=== PATIENT | female | born 1985 | race African-American/Black ===

== ENCOUNTER 2016-11-28 10:14 | Emergency (ER) | payer MEDICAID, OTHER ==
[~2016-11-28] VITALS: Ht 172.7 cm; Wt 60.0 kg
[2016-11-28 10:15] VITALS: BP 136/86; PULSE 120; RESP 24; TEMP 98.8; O2SAT 99
[2016-11-28] MEDS ORDERED: ONDANSETRON HCL 4 MG/2 ML VIAL IVP ONE (10:30)
[2016-11-28] MEDS ORDERED: SODIUM CHLORIDE 0.9% FLUSH 10 ML FLUSH IV FLUSH PRN (10:30)
[2016-11-28] MEDS ORDERED: MORPHINE SULFATE 8 MG/ML INJ IV PUSH ONE (10:30)
[2016-11-28 10:37] VITALS: RESP 18; O2SAT 99
[2016-11-28] MEDS ORDERED: KETOROLAC TROMETHAMINE 30 MG/ML (IVP) VIAL IVP ONE (10:45)
--- NOTE | 2016-11-28 10:54 | RADRPT ---
EXAM DATE/TIME: 11/28/2016 10:39 [facility] COMPARISON: CHEST SINGLE AP, February 28, 2013, 19:52. INDICATIONS : Evaluate lung status. Chest pain. MEDICAL HISTORY : None. SURGICAL HISTORY : None. ENCOUNTER: Initial ACUITY: 1 day PAIN SCORE: 10/10 LOCATION: Bilateral chest FINDINGS: A single view of the chest demonstrates the lungs to be symmetrically aerated without evidence of mas s, infiltrate or effusion. The cardiomediastinal contours are unremarkable. Osseous structures are intact. CONCLUSION: Normal examination for a patient of this age. No significant change has occurred. Jan Pacheco MD on November 28, 2016 at 10:52 Board Certified Radiologist. This report was verified electronically.
[2016-11-28 11:02] LABS: AUTOMATED NEUTROPHIL # 5.3 TH/MM3 (1.8-7.7); BASOPHIL # 0.1 TH/MM3 (0-0.2); BASOPHIL % 0.7 % (0.0-2.0); EOSINOPHIL # 0.1 TH/MM3 (0-0.4); EOSINOPHIL % 0.9 % (0.0-4.0); HEMATOCRIT 40.5 % (35.0-46.0); HEMO FLAGS DIFF FINAL; LYMPH % 28.5 % (9.0-44.0); LYMPHOCYTE # 2.5 TH/MM3 (1.0-4.8); MEAN CORPUSCULAR HEMOGLOBIN 31.3 PG (27.0-34.0); MEAN CORPUSCULAR HGB CONC 33.2 % (32.0-36.0); MONO % 9.9 % (0.0-8.0); PLATELET COUNT 195 TH/MM3 (150-450); RED BLOOD COUNT 4.31 MIL/MM3 (4.00-5.30); RED CELL DISTRIBUTION WIDTH 13.2 % (11.6-17.2); WHITE BLOOD COUNT 8.9 TH/MM3 (4.0-11.0)
--- NOTE | 2016-11-28 11:07 | PD ---
HPI Chief Complaint: Cold / Flu Symptoms Time Seen by Provider: 10:26 Travel History International Travel<30 days: No Contact w/Intl Traveler<30days: No Traveled to known affect area: No History of Present Illness HPI 31-year-old female arrives complaining of right lower chest wall pain. It started over the last few hours well patient was asleep. She notes runny nose and nasal congestion starting overnight as well. She notes that slapping upon the chest does not seem to help. She took aspirin which has not helped. She's had no fever. Patient denies cough. She smokes tobacco. She denies alcohol abuse. PFSH Past Medical History Arthritis: No Asthma: No Anxiety: No Depression: No Heart Rhythm Problems: Yes (MURMUR) Cancer: No Cardiovascular Problems: Yes (HEART MURMUR) High Cholesterol: No Congestive Heart Failure: No COPD: No Cerebrovascular Accident: No Diabetes: No Diminished Hearing: No Endocrine: No GERD: No Genitourinary: Yes (OVARIAN CYST uti) Hiatal Hernia: No Immune Disorder: No Kidney Stones: Yes Musculoskeletal: No Neurologic: No Psychiatric: No Reproductive: Yes (OVARIAN CYST) Respiratory: Yes (SMOKER) Immunizations Current: No Migraines: Yes Renal Failure: No Sleep Apnea: No Thyroid Disease: No Ulcer: No ?: Not : 6 Para: 4 Miscarriage: 1 : 1 Ectopic : Yes (REMOVED LEFT TUBE) Ovarian Cysts: Yes Tubal Ligation: Yes (ECTOPIC W/ SURGERY) Past Surgical History Abdominal Surgery: No AICD: No Arteriovenous Shunt: No Cardiac Surgery: No Section: No Ear Surgery: No Endocrine Surgery: No Eye Surgery: No Genitourinary Surgery: No Gynecologic Surgery: Yes (ectopic preg) Insulin Pump: No Joint Replacement: No Oral Surgery: No Pacemaker: No Thoracic Surgery: No Other Surgery: No Family History Family Hypercholesterolemia: Yes Social History Alcohol Use: No Tobacco Use: Yes (1 ppd) Substance Use: No Allergies-Medications (Allergen,Severity, Reaction): Coded Allergies: Phenergan (Verified Adverse Reaction, Severe, N&V, 11/28/16) Reported Meds & Prescriptions Reported Meds & Active Scripts Active No Active Prescriptions or Reported Medications Review of Systems Except as stated in HPI: all other systems reviewed are Neg Physical Exam Narrative GENERAL: 31-year-old female well-nourished well-developed mildly anxious SKIN: Focused skin assessment warm/dry. HEAD: Atraumatic. Normocephalic. EYES: Pupils equal and round. No scleral icterus. No injection or drainage. ENT: No nasal bleeding or discharge. Mucous membranes pink and moist. NECK: Trachea midline. No JVD. CARDIOVASCULAR: Regular rate and rhythm. No murmur appreciated. No tenderness about the right lower chest wall. RESPIRATORY: No accessory muscle use. Clear to auscultation. Breath sounds equal bilaterally. GASTROINTESTINAL: Abdomen soft, non-tender, nondistended. Minimal tenderness in the right upper quadrant. No tenderness at McBurney's point. MUSCULOSKELETAL: No obvious deformities. No clubbing. No cyanosis. No edema. NEUROLOGICAL: Awake and alert. No obvious cranial nerve deficits. Motor grossly within normal limits. Normal speech. PSYCHIATRIC: Appropriate mood and affect; insight and judgment normal. Data Data Last Documented VS Vital Signs Date Time Temp Pulse Resp B/P Pulse Ox O2 Delivery O2 Flow Rate FiO2 11/28/16 10:37 18 99 Room Air 11/28/16 10:15 98.8 120 136/86 Vital signs reviewed Orders Complete Blood Count With Diff (11/28/16 10:30) Comprehensive Metabolic Panel (11/28/16 10:30) Lipase (11/28/16 10:30) Iv Access Insert/Monitor (11/28/16 10:30) Ecg Monitoring (11/28/16 10:30) Oximetry (11/28/16 10:30) NPO (11/28/16 10:30) Ondansetron Inj (Zofran Inj) (11/28/16 10:30) Sodium Chloride 0.9% Flush (Ns Flush) (11/28/16 10:30) Chest, Single Ap (11/28/16 10:30) Morphine Inj (Morphine Inj) (11/28/16 10:30) Ed Urine Pregnancytest Poc (11/28/16 10:30) Ed Poc Ultrasound (11/28/16 10:30) Ketorolac Inj (Toradol Inj) (11/28/16 10:45) Troponin I (11/28/16 10:35) Electrocardiogram (11/28/16 ) Acetamin-Hydrocod 325-5 Mg ([place] 5-325 (11/28/16 12:30) Labs Laboratory Tests Test 11/28/16 10:35 White Blood Count 8.9 TH/MM3 Red Blood Count 4.31 MIL/MM3 Hemoglobin 13.5 GM/DL Hematocrit 40.5 % Mean Corpuscular Volume 94.0 FL Mean Corpuscular Hemoglobin 31.3 PG Mean Corpuscular Hemoglobin 33.2 % Concent Red Cell Distribution Width 13.2 % Platelet Count 195 TH/MM3 Mean Platelet Volume 8.5 FL Neutrophils (%) (Auto) 60.0 % Lymphocytes (%) (Auto) 28.5 % Monocytes (%) (Auto) 9.9 % Eosinophils (%) (Auto) 0.9 % Basophils (%) (Auto) 0.7 % Neutrophils # (Auto) 5.3 TH/MM3 Lymphocytes # (Auto) 2.5 TH/MM3 Monocytes # (Auto) 0.9 TH/MM3 Eosinophils # (Auto) 0.1 TH/MM3 Basophils # (Auto) 0.1 TH/MM3 CBC Comment DIFF FINAL Differential Comment Sodium Level 138 MEQ/L Potassium Level 3.5 MEQ/L Chloride Level 103 MEQ/L Carbon Dioxide Level 27.7 MEQ/L Anion Gap 7 MEQ/L Blood Urea Nitrogen 9 MG/DL Creatinine 0.72 MG/DL Estimat Glomerular Filtration 116 ML/MIN Rate Random Glucose 85 MG/DL Calcium Level 9.0 MG/DL Total Bilirubin 0.6 MG/DL Aspartate Amino Transf 28 U/L (AST/SGOT) Alanine Aminotransferase 28 U/L (ALT/SGPT) Alkaline Phosphatase 60 U/L Troponin I LESS THAN 0.02 NG/ML Total Protein 8.5 GM/DL Albumin 4.5 GM/DL Lipase 145 U/L [facility] Medical Decision Making Medical Screen Exam Complete: Yes Emergency Medical Condition: Yes Medical Record Reviewed: Yes Differential Diagnosis Pneumonia, costochondritis, PE, hepatitis, pancreatitis, cholecystitis Narrative Course CBC & BMP Diagram 11/28/16 10:35 EKG shows sinus rhythm no ischemic injury pattern LFTs normal Troponin less than 0.02 Lipase normal Last 24 hours Impressions Chest X-Ray 11/28/16 1030 Signed Impressions: Service Date/Time: , November 28, 2016 10:39 - CONCLUSION: Normal examination for a patient of this age. No significant change has occurred. Jan Pacheco MD Patient reports persistent pain at 10:15 AM. Transabdominal ultrasound right upper quadrant reveals no cholecystitis. Of note the patient has had [address] scans of the abdomen and pelvis and 8 prior pelvis ultrasounds. Diagnosis Primary Impression: Chest pain Qualified Code: R07.9 - Chest pain, unspecified type Additional Impression: RUQ abdominal pain Referrals: Primary Care Physician 2 days Additional Instructions: You have a choice when it comes to health care, and we are glad that you chose [facility]. Hopefully, we have met your expectations on today's visit. You are welcome to return to [facility] at any time, as we are committed to meeting the health care needs of our community. Med/Other Pt SpecificInfo: Prescription(s) given Scripts Hydrocodone-Acetaminophen (Lortab)5-325 Mg Tab1-2 Tab PO Q6H PRN (PAIN SCALE 6 TO 10) #12 TAB Ref 0 Prov:Irvin Rae MD 11/28/16 Disposition: DISCHARGE HOME Condition: Irvin Randall MD November 28, 2016 11:07 Med/Other Pt SpecificInfo: Med Stopped Scripts No Active Prescriptions or Reported Meds Disposition: DISCHARGE HOME Condition: Irvin Randall MD November 28, 2016 11:07
[2016-11-28 11:19] LABS: ALT (GPT) 28 U/L (10-53); ANION GAP 7 MEQ/L (5-15); AST (GOT) 28 U/L (15-37); BICARBONATE 27.7 MEQ/L (21.0-32.0); BLOOD UREA NITROGEN 9 MG/DL (7-18); CHLORIDE 103 MEQ/L (98-107); GLOMERULAR FILTRATION RATE 116 ML/MIN (>89); POTASSIUM 3.5 MEQ/L (3.5-5.1); SODIUM (NA) 138 MEQ/L (136-145)
[2016-11-28 11:23] LABS: ALKALINE PHOSPHATASE 60 U/L (45-117); TOTAL BILIRUBIN ADULT 0.6 MG/DL (0.2-1.0)
[2016-11-28] MEDS ORDERED: ACETAMINOPHEN/HYDROcodone 325 MG/5 MG TAB PO ONE (12:30)
[2016-11-28] MEDS ORDERED: HYDR-3533 PO (12:36)
--- NOTE | 2016-11-28 16:25 | EKG ---
Date Performed: 11/28/2016 Time Performed: 11:00:24 PTAGE: 31 years EKG: Sinus rhythm WITH MARKED SINUS ARRHYTHMIA BORDERLINE ECG PREVIOUS TRACING : 11/28/2016 10.41 Compared to the previous tracing, previous tracing with no recording, unable to compare DOCTOR: Ross Rae Interpretating Date/Time 11/28/2016 16:25:01
== END 2016-11-28 13:06 | disposition home or self-care (01) ==
LOC: NEPD 10:14
DX: R07.9 Chest pain, unspecified (principal); R10.11 Right upper quadrant pain; R09.81 Nasal congestion; R09.89 Other specified symptoms and signs involving the circulatory and respiratory systems; R94.31 Abnormal electrocardiogram [ECG] [EKG]; F17.200 Nicotine dependence, unspecified, uncomplicated; Z86.79 Personal history of other diseases of the circulatory system; Z87.448 Personal history of other diseases of urinary system; Z87.42 Personal history of other diseases of the female genital tract; Z86.69 Personal history of other diseases of the nervous system and sense organs
CPT/HCPCS: 71010; 80053; 83690; 84484; 84703; 85025; 93005; 96374; 96375; 99285; J1885; J2270; J2405

== ENCOUNTER 2017-02-23 20:04 | Emergency (ER) | payer SELFPAY ==
[~2017-02-23] VITALS: Ht 172.7 cm; Wt 60.0 kg
[~2017-02-23 20:04] MED LIST: HYDR-3533 PO
[2017-02-23 20:06] VITALS: BP 118/72; PULSE 100; RESP 16; TEMP 98.7; O2SAT 100
== END 2017-02-23 23:25 | disposition left against medical advice (07) ==
LOC: NED 20:04
DX: R10.30 Lower abdominal pain, unspecified (principal); Z53.21 Procedure and treatment not carried out due to patient leaving prior to being seen by health care provider
CPT/HCPCS: 99281

== ENCOUNTER 2017-04-30 19:37 | Emergency (ER) | payer MEDICAID ==
[2017-04-30 19:38] VITALS: BP 133/82; PULSE 113; RESP 16; TEMP 99.7; O2SAT 99
[2017-04-30] MEDS ORDERED: ACETAMINOPHEN 500 MG CPLT PO ONE (20:15)
[2017-04-30] MEDS ORDERED: KETOROLAC TROMETHAMINE 60 MG/2 ML (IM) VIAL IM ONE (20:15)
[2017-04-30 20:26] VITALS: TEMP 99
--- NOTE | 2017-04-30 20:26 | PD ---
HPI Chief Complaint: Headache Time Seen by Provider: 20:08 Travel History International Travel<30 days: No Contact w/Intl Traveler<30days: No Traveled to known affect area: No History of Present Illness HPI 31-year-old black female presents to emergency department for evaluation of headache, subjective fever and chills, sore throat, slight cough, myalgias, arthralgias and general malaise. She states that she feels as if this is a migraine headache. She has taken Aleve at home without relief. Symptoms are minimal presents in yesterday. She denies any nausea vomiting. No abdominal pain. No dysuria or frequency. No numbness, tingling or weakness. No photophobia. No neck stiffness. PFSH Past Medical History Arthritis: No Asthma: No Anxiety: No Depression: No Heart Rhythm Problems: Yes (MURMUR) Cancer: No Cardiovascular Problems: Yes (HEART MURMUR) High Cholesterol: No Congestive Heart Failure: No COPD: No Cerebrovascular Accident: No Diabetes: No Diminished Hearing: No Endocrine: No GERD: No Genitourinary: Yes (OVARIAN CYST uti) Hiatal Hernia: No Immune Disorder: No Kidney Stones: Yes Musculoskeletal: No Neurologic: No Psychiatric: No Reproductive: Yes (OVARIAN CYST) Respiratory: Yes (SMOKER) Immunizations Current: No Migraines: Yes Renal Failure: No Sleep Apnea: No Thyroid Disease: No Ulcer: No Tetanus Vaccination: < 5 Years ?: Not LMP: "TWO WEEKS AGO" : 6 Para: 4 Miscarriage: 1 : 1 Ectopic : Yes (REMOVED LEFT TUBE) Ovarian Cysts: Yes Tubal Ligation: Yes (ECTOPIC W/ SURGERY) Past Surgical History Abdominal Surgery: No AICD: No Arteriovenous Shunt: No Cardiac Surgery: No Section: No Ear Surgery: No Endocrine Surgery: No Eye Surgery: No Genitourinary Surgery: No Gynecologic Surgery: Yes (ectopic preg) Insulin Pump: No Joint Replacement: No Oral Surgery: No Pacemaker: No Thoracic Surgery: No Other Surgery: No Family History Family Hypercholesterolemia: Yes Social History Alcohol Use: Yes (OCC.) Tobacco Use: Yes (1.5 PPD) Substance Use: No Allergies-Medications (Allergen,Severity, Reaction): Coded Allergies: promethazine (Unverified Adverse Reaction, Severe, N&V, 04/30/17) Reported Meds & Prescriptions Reported Meds & Active Scripts Active No Active Prescriptions or Reported Medications Review of Systems Except as stated in HPI: all other systems reviewed are Neg Physical Exam Narrative GENERAL: Well-developed, well-nourished in no apparent distress. Nontoxic appearing. HEAD: Normocephalic, atraumatic. EYES: Pupils equal round and reactive. Extraocular motions intact. No scleral icterus. No injection or drainage. ENT: Nose clear. Throat is mildly erythematous. No tonsillar hypertrophy or exudate. Uvula midline. Airway patent. NECK: Trachea midline. Supple, nontender, moves head freely. No central bony tenderness or spasm. A few tender cervical lymph nodes. CARDIOVASCULAR: Regular rate and rhythm without murmurs, gallops, or rubs. RESPIRATORY: Clear to auscultation. Breath sounds equal bilaterally. No wheezes , rales, or rhonchi. GASTROINTESTINAL: Abdomen soft, non-tender, nondistended. No hepato-splenomegaly , or palpable masses. No guarding. EXTREMITIES: No clubbing, cyanosis, or edema. No joint tenderness. BACK: Nontender without deformity. No flank tenderness. NEUROLOGICAL: Awake, alert and oriented x 3 .Cranial nerves grossly intact. Motor and sensory grossly within normal limits. Normal speech. Data Data Last Documented VS Vital Signs Date Time Temp Pulse Resp B/P (MAP) Pulse Ox O2 Delivery O2 Flow Rate FiO2 04/30/17 19:38 99.7 113 16 133/82 (99) 99 Room Air Orders Orders Ketorolac Inj (Toradol Inj) (04/30/17 20:15) Acetaminophen (Tylenol) (04/30/17 20:15) MDM Medical Decision Making Medical Screen Exam Complete: Yes Emergency Medical Condition: Yes Medical Record Reviewed: Yes Differential Diagnosis Differential diagnosis: Migraine, influenza-like illness, influenza, strep throat Narrative Course The patient's history and exam is consistent with an influenza-like illness. Patient states that this is a migraine headache but there is no documentation that the patient has a history of migraines. She is reporting merely a headache this worse than usual. Patient actually does not carry a true diagnosis of migraines. Patient moves head freely. I do not believe that this is not meningitis. Patient is given Toradol 60 mg IM and 1 g of Tylenol by mouth. This is an influenza-like illness, cephalgia Diagnosis Primary Impression: Influenza-like illness Additional Impression: Cephalgia Qualified Codes: R51 - Headache Patient Instructions: General Instructions Departure Forms: Tests/Procedures, Work Release Special Instructions: No work 3 days. Additional Instructions: Rest. Increase fluids. 2 Tylenol alternating with 3 ibuprofen every 3 hours. Follow-up with a medical doctor in the next 3-5 days. Return to the ER for emergencies. Med/Other Pt SpecificInfo: No Meds Exist/No RX given Scripts No Active Prescriptions or Reported Meds Disposition: 01 DISCHARGE HOME Condition: Stable Jan Jesus Apr 30, 2017 20:26
== END 2017-04-30 20:45 | disposition home or self-care (01) ==
LOC: NEPK 19:37
DX: J11.1 Influenza due to unidentified influenza virus with other respiratory manifestations (principal); R51 Headache; R01.1 Cardiac murmur, unspecified; F17.200 Nicotine dependence, unspecified, uncomplicated; Z87.442 Personal history of urinary calculi
CPT/HCPCS: 96372; 99284; J1885

== ENCOUNTER 2017-05-02 18:16 | Emergency (ER) | payer MEDICAID ==
[~2017-05-02] VITALS: Ht 172.7 cm; Wt 68.0 kg
[2017-05-02 18:18] VITALS: BP 132/79; PULSE 101; RESP 13; TEMP 99.7; O2SAT 100
[2017-05-02] MEDS ORDERED: MAGICPED SWISH-SWAL (18:31)
[2017-05-02] MEDS ORDERED: AMOX500C PO (18:31)
--- NOTE | 2017-05-02 18:32 | PD ---
HPI Chief Complaint: ENT Complaint Time Seen by Provider: 18:29 Travel History International Travel<30 days: No Contact w/Intl Traveler<30days: No Traveled to known affect area: No History of Present Illness HPI 31-year-old female presents to the emergency Department with complaint of worsening of sore throat 4 days. Says she was here 2 days ago and was told that she had the flu. She reports fevers, but has not taken her temperature and cannot reports MAXIMUM TEMPERATURE. Had a headache yesterday and was treated here with an injection for her headache. Denies continued headache. Denies ear pain. Reports body aches and chills. Denies chest pain, shortness of breath, abdominal pain, nausea, vomiting. Denies lump in throat, difficulty swallowing, unusual drooling. Reports painful swallowing. Says she can see some white spots in the back of her throat. Has been taking ibuprofen and Tylenol for symptom management. Symptoms are moderate in severity. Described as a burning sensation. Has no other medical complaints. Allergies to promethazine. No other modifying factors or associated signs and symptoms. PFSH Past Medical History Arthritis: No Asthma: No Anxiety: No Depression: No Heart Rhythm Problems: Yes (MURMUR) Cancer: No Cardiovascular Problems: Yes (HEART MURMUR) High Cholesterol: No Congestive Heart Failure: No COPD: No Cerebrovascular Accident: No Diabetes: No Diminished Hearing: No Endocrine: No GERD: No Genitourinary: Yes (OVARIAN CYST uti) Hiatal Hernia: No Immune Disorder: No Kidney Stones: Yes Musculoskeletal: No Neurologic: No Psychiatric: No Reproductive: Yes (OVARIAN CYST) Respiratory: Yes (SMOKER) Immunizations Current: No Migraines: Yes Renal Failure: No Sleep Apnea: No Thyroid Disease: No Ulcer: No ?: Not LMP: APR 2017 : 6 Para: 4 Miscarriage: 1 : 1 Ectopic : Yes (REMOVED LEFT TUBE) Ovarian Cysts: Yes Tubal Ligation: Yes (ECTOPIC W/ SURGERY) Past Surgical History Abdominal Surgery: No AICD: No Arteriovenous Shunt: No Cardiac Surgery: No Section: No Ear Surgery: No Endocrine Surgery: No Eye Surgery: No Genitourinary Surgery: No Gynecologic Surgery: Yes (ectopic preg) Insulin Pump: No Joint Replacement: No Oral Surgery: No Pacemaker: No Thoracic Surgery: No Other Surgery: No Family History Family Hypercholesterolemia: Yes Social History Alcohol Use: Yes (OCC.) Tobacco Use: Yes (1.5 PPD) Substance Use: No Allergies-Medications (Allergen,Severity, Reaction): Coded Allergies: promethazine (Unverified Adverse Reaction, Severe, N&V, 05/02/17) Reported Meds & Prescriptions Reported Meds & Active Scripts Active Magic Mouthwash Pediatric/Adult Liq (Lidocaine/Diphenhydr/Alum/Mg/Simeth) 60 Ml Susp 5 Ml SWISH-SWAL Q3HR PRN Each 5mL contains: Diphenydramine 4.5mg, Viscous Lidocaine 2% 10mg, Maalox Advanced Regular Strength 2.7ml Amoxicillin 500 Mg Cap 500 Mg PO BID 10 Days Review of Systems Except as stated in HPI: all other systems reviewed are Neg Physical Exam Narrative GENERAL: Well-nourished, well-developed white female patient, in no acute distress; low-grade fever 99.7. Nontoxic-appearing. SKIN: Warm and dry. No rash. HEAD: Atraumatic. Normocephalic. EYES: Pupils equal and round at 3 mm with brisk reaction. No scleral icterus. No injection or drainage. PERRLA. ENT: Mucosa pink and dry. Pharynx with 2+ tonsils; with erythema, exudate, and edema. No Uvular edema. No uvular, palatal, or tonsillar deviation. Airway patent. Voice is hoarse. EARS: Bilateral pinnae and external canals appear within normal limits. Bilateral tympanic membranes without erythema, dullness or perforation.. NECK: Trachea midline. Anterior cervical lymphadenopathy and tenderness. CARDIOVASCULAR: Regular rate and rhythm. No murmur appreciated. RESPIRATORY: No accessory muscle use. Clear to auscultation. Breath sounds equal bilaterally. GASTROINTESTINAL: Abdomen soft, non-tender, nondistended. Hepatic and splenic margins not palpable. Bowel sounds are active 4 quadrants. MUSCULOSKELETAL: No obvious deformities. No clubbing. No cyanosis. No edema. NEUROLOGICAL: Awake and alert. Oriented 3. No obvious cranial nerve deficits. Motor grossly within normal limits. Normal speech. Moves all extremities. PSYCHIATRIC: Appropriate mood and affect; insight and judgment normal. Data Data Last Documented VS Vital Signs Date Time Temp Pulse Resp B/P (MAP) Pulse Ox O2 Delivery O2 Flow Rate FiO2 05/02/17 18:18 99.7 101 13 132/79 (96) 100 Orders Orders Group A Rapid Strep Screen (05/02/17 18:29) Influenzae A/B Antigen (05/02/17 18:29) Ed Discharge Order (05/02/17 18:32) MDM Medical Decision Making Medical Screen Exam Complete: Yes Emergency Medical Condition: Yes Medical Record Reviewed: Yes Differential Diagnosis Strep pharyngitis, viral pharyngitis, influenza, upper respiratory infection Narrative Course 31-year-old female physical exam consistent with exudative pharyngitis. She was seen here on April 30. I reviewed her medical record and there were no flu swab for rapid strep swab done. Patient has low-grade fever of 99.7 in the ear. Reports subjective fever at home. Denies vomiting. Patient is nontoxic- appearing. Denies lump in throat, difficulty swallowing, unusual drooling. Influenza and rapid strep ordered and pending. Amoxicillin and Magic mouthwash prescribed for home. Instructed patient to follow up with primary care provider. Patient verbalizes understanding and agreement with treatment plan. Patient is medically cleared and stable for discharge. Discussed reasons to return to the emergency department. Patient agrees with treatment plan. The patients vital signs are stable and the patient is stable for outpatient follow- up and treatment. Patient discharged home, stable and in no acute distress. Diagnosis Primary Impression: Exudative pharyngitis Referrals: [facility] Primary Care Physician Patient Instructions: General Instructions, Pharyngitis (ED) Departure Forms: Tests/Procedures, Work Release Enter return to work date: May 05, 2017 Additional Instructions: Take Antibiotics as prescribed and complete full course of antibiotics Throw away and change your toothbrush 24 hours after starting antibiotics Get plenty of sleep/rest Rest your voice Drink plenty of fluids to prevent dehydration Use warm saltwater gargles to soothe throat pain Use an air humidifier/turn off ceiling fans Use throat lozenges as needed for sore throat Use ibuprofen or acetaminophen as needed to relieve pain and fever Follow-up with your primary care provider within 2-4 days Return immediately to the emergency department with worsening of symptoms Med/Other Pt SpecificInfo: Prescription(s) given Scripts [id number]-Fqw-Alum-Simeth Liq (Magic Mouthwash Pediatric/Adult Liq) 60 Ml Susp 5 ML SWISH-SWAL Q3HR Y for SORE THROAT, #60 ML 0 Refills Each 5mL contains: Diphenydramine 4.5mg, Viscous Lidocaine 2% 10mg, Maalox Advanced Regular Strength 2.7ml Prov: Camille Eubanks 05/02/17 Amoxicillin (Amoxicillin) 500 Mg Cap 500 MG PO BID for Infection for 10 Days, #20 CAP 0 Refills Prov: Camille Eubanks 05/02/17 Disposition: 01 DISCHARGE HOME Condition: Stable Camille Eubanks May 02, 2017 18:32
== END 2017-05-02 18:54 | disposition home or self-care (01) ==
LOC: NEPK 18:16
DX: J02.9 Acute pharyngitis, unspecified (principal); R01.1 Cardiac murmur, unspecified; F17.200 Nicotine dependence, unspecified, uncomplicated
CPT/HCPCS: 87081; 87804; 87880; 99284

== ENCOUNTER 2017-08-22 09:54 | Emergency (ER) | payer MEDICAID ==
[~2017-08-22] VITALS: Ht 172.7 cm; Wt 70.0 kg
[~2017-08-22 09:54] MED LIST changes: +AMOX500C PO; -HYDR-3533 PO; +MAGICPED SWISH-SWAL
[2017-08-22 09:57] VITALS: BP 117/52; PULSE 92; RESP 14; TEMP 98.7; O2SAT 99
[2017-08-22] MEDS ORDERED: SODIUM CHLOR 0.9% 1000 ML INJ 1,000 ML IV SCH (10:27)
[2017-08-22] MEDS ORDERED: SODIUM CHLORIDE 0.9% FLUSH 10 ML FLUSH IV FLUSH PRN (10:30)
[2017-08-22] MEDS ORDERED: ONDANSETRON HCL 4 MG/2 ML VIAL IVP ONE (10:30)
--- NOTE | 2017-08-22 10:30 | PD ---
HPI Chief Complaint: GI Complaint Time Seen by Provider: 10:25 Travel History International Travel<30 days: No Contact w/Intl Traveler<30days: No Traveled to known affect area: No History of Present Illness HPI 32-year-old female here for evaluation of fever, chills, sore throat, nausea, vomiting, diarrhea. Symptoms started yesterday. One of her children has similar symptoms and is being evaluated in pediatrics ran out. Sore throat is moderate, worse with swallowing, constant. She is able swallow and tolerate her secretions. Cough is nonproductive. PFSH Past Medical History Arthritis: No Asthma: No Anxiety: No Depression: No Heart Rhythm Problems: Yes (MURMUR) Cancer: No Cardiovascular Problems: Yes (HEART MURMUR) High Cholesterol: No Congestive Heart Failure: No COPD: No Cerebrovascular Accident: No Diabetes: No Diminished Hearing: No Endocrine: No GERD: No Genitourinary: Yes (OVARIAN CYST uti) Hiatal Hernia: No Immune Disorder: No Kidney Stones: Yes Musculoskeletal: No Neurologic: No Psychiatric: No Reproductive: Yes (OVARIAN CYST) Respiratory: Yes (SMOKER) Immunizations Current: No Migraines: Yes Renal Failure: No Sleep Apnea: No Thyroid Disease: No Ulcer: No ?: Not LMP: 08/16/17 : 6 Para: 4 Miscarriage: 1 : 1 Ectopic : Yes (REMOVED LEFT TUBE) Ovarian Cysts: Yes Tubal Ligation: Yes (ECTOPIC W/ SURGERY) Past Surgical History Abdominal Surgery: No AICD: No Arteriovenous Shunt: No Cardiac Surgery: No Section: No Ear Surgery: No Endocrine Surgery: No Eye Surgery: No Genitourinary Surgery: No Gynecologic Surgery: Yes (ectopic preg) Insulin Pump: No Joint Replacement: No Oral Surgery: No Pacemaker: No Thoracic Surgery: No Other Surgery: No Family History Family Hypercholesterolemia: Yes Social History Alcohol Use: Yes (OCC.) Tobacco Use: Yes (1.5 PPD) Substance Use: No Allergies-Medications (Allergen,Severity, Reaction): Coded Allergies: promethazine (Verified Adverse Reaction, Severe, N&V, 08/22/17) Reported Meds & Prescriptions Reported Meds & Active Scripts Active Amoxicillin 500 Mg Cap 500 Mg PO BID 10 Days Review of Systems Except as stated in HPI: all other systems reviewed are Neg Physical Exam Narrative GENERAL: Well-developed, well-nourished, comfortable, no apparent distress. SKIN: Focused skin assessment warm/dry. No rash. HEAD: Atraumatic. Normocephalic. EYES: Pupils equal and round. No scleral icterus. No injection or drainage. ENT: No nasal bleeding or discharge. Mucous membranes pink and moist. Mild pharyngeal edema without tonsillar exudates. Uvula is midline. Normal phonation. No drooling or stridor. NECK: Trachea midline. No JVD. No nuchal rigidity. CARDIOVASCULAR: Regular rate and rhythm. RESPIRATORY: No accessory muscle use. Clear to auscultation. Breath sounds equal bilaterally. GASTROINTESTINAL: Abdomen soft, non-tender, nondistended. MUSCULOSKELETAL: No obvious deformities. No clubbing. No cyanosis. No edema. NEUROLOGICAL: Awake and alert. No obvious cranial nerve deficits. Motor grossly within normal limits. Normal speech. PSYCHIATRIC: Appropriate mood and affect; insight and judgment normal. Data Data Last Documented VS Vital Signs Date Time Temp Pulse Resp B/P (MAP) Pulse Ox O2 Delivery O2 Flow Rate FiO2 08/22/17 11:06 79 16 120/75 (90) 100 Room Air 08/22/17 09:57 98.7 Orders Orders Complete Blood Count With Diff (08/22/17 10:27) Comprehensive Metabolic Panel (08/22/17 10:27) Urinalysis - C+S If Indicated (08/22/17 10:27) Iv Access Insert/Monitor (08/22/17 10:27) Ecg Monitoring (08/22/17 10:27) Oximetry (08/22/17 10:27) Ondansetron Inj (Zofran Inj) (08/22/17 10:30) Sodium Chlor 0.9% 1000 Ml Inj (Ns 1000 M (08/22/17 10:27) Sodium Chloride 0.9% Flush (Ns Flush) (08/22/17 10:30) Influenzae A/B Antigen (08/22/17 10:27) Group A Rapid Strep Screen (08/22/17 10:27) Ed Urine Pregnancytest Poc (08/22/17 10:27) Urine Culture (08/22/17 11:00) Strep Culture (Group A) (08/22/17 10:45) Ceftriaxone Inj (Rocephin Inj) (08/22/17 11:45) Ketorolac Inj (Toradol Inj) (08/22/17 11:45) Labs Laboratory Tests Test 08/22/17 10:45 08/22/17 11:00 White Blood Count 7.0 TH/MM3 Red Blood Count 3.39 MIL/MM3 Hemoglobin 11.0 GM/DL Hematocrit 31.3 % Mean Corpuscular Volume 92.5 FL Mean Corpuscular Hemoglobin 32.4 PG Mean Corpuscular Hemoglobin Concent 35.1 % Red Cell Distribution Width 12.5 % Platelet Count 232 TH/MM3 Mean Platelet Volume 7.7 FL Neutrophils (%) (Auto) 67.1 % Lymphocytes (%) (Auto) 20.9 % Monocytes (%) (Auto) 11.4 % Eosinophils (%) (Auto) 0.2 % Basophils (%) (Auto) 0.4 % Neutrophils # (Auto) 4.7 TH/MM3 Lymphocytes # (Auto) 1.5 TH/MM3 Monocytes # (Auto) 0.8 TH/MM3 Eosinophils # (Auto) 0.0 TH/MM3 Basophils # (Auto) 0.0 TH/MM3 CBC Comment DIFF FINAL Differential Comment Blood Urea Nitrogen 10 MG/DL Creatinine 0.52 MG/DL Random Glucose 77 MG/DL Total Protein 7.4 GM/DL Albumin 3.8 GM/DL Calcium Level 8.4 MG/DL Alkaline Phosphatase 46 U/L Aspartate Amino Transf (AST/SGOT) 20 U/L Alanine Aminotransferase (ALT/SGPT) 13 U/L Total Bilirubin 0.2 MG/DL Sodium Level 138 MEQ/L Potassium Level 3.7 MEQ/L Chloride Level 105 MEQ/L Carbon Dioxide Level 27.3 MEQ/L Anion Gap 6 MEQ/L Estimat Glomerular Filtration Rate 168 ML/MIN Urine Color DARK-YELLOW Urine Turbidity HAZY Urine pH 6.0 Urine Specific [place] 1.031 Urine Protein 30 mg/dL Urine Glucose (UA) NEG mg/dL Urine Ketones NEG mg/dL Urine Occult Blood NEG Urine Nitrite NEG Urine Bilirubin NEG Urine Urobilinogen LESS THAN 2.0 MG/DL Urine Leukocyte Esterase LARGE Urine RBC 6 /hpf Urine WBC 4 /hpf Urine Squamous Epithelial Cells 14 /hpf Urine Bacteria MOD /hpf Urine Mucus MANY /lpf Microscopic Urinalysis Comment CULTURE INDICATED MDM Medical Decision Making Medical Screen Exam Complete: Yes Emergency Medical Condition: Yes Differential Diagnosis Influenza, strep pharyngitis, URI, Narrative Course Vital signs show heart rate 92, blood pressure 117/52, pulse ox 99% on room air , oral temp of 98.7F. CBC: WBC 7, hemoglobin 11, hematocrit 31, platelets 232. CMP is unremarkable. UA is suggestive of UTI. Influenza is negative. Group A strep is negative. Patient was made aware of all findings per she is resting comfortably. She continues to complain of a sore throat. She does have slight anterior cervical lymphadenopathy with small/subcentimeter nodes that are non-fixed. Her pharynx is slightly erythematous, however otherwise appears normal. Uvula is midline. Normal phonation. No drooling or stridor. She was given a dose of 1 g of IV Rocephin will be discharged home with a prescription for Ceftin. She is stable for discharge home out patient follow-up with her primary care physician this week. She was advised on when to return to the emergency department. She verbalizes understanding and agreement with plan. Diagnosis Primary Impression: UTI (urinary tract infection) Qualified Codes: N39.0 - Urinary tract infection, site not specified; R31.9 - Hematuria, unspecified Additional Impression: Pharyngitis Qualified Codes: J02.8 - Acute pharyngitis due to other specified organisms Referrals: Primary Care Physician 3 days Additional Instructions: Follow-up with your primary care physician this week. Stay hydrated with plenty of fluids. Return to the emergency department for worsening symptoms or any other concerns. Scripts Cefuroxime (Ceftin) 250 Mg Tab 500 MG PO BID for 7 Days, #28 TAB Prov: Jamie Rios MD 08/22/17 Disposition: 01 DISCHARGE HOME Condition: Stable Jamie Rios MD Aug 22, 2017 10:30
[2017-08-22 11:06] VITALS: BP 120/75; PULSE 79; RESP 16; O2SAT 100
[2017-08-22 11:12] LABS: AUTOMATED NEUTROPHIL # 4.7 TH/MM3 (1.8-7.7); BASOPHIL % 0.4 % (0.0-2.0); EOSINOPHIL % 0.2 % (0.0-4.0); HEMATOCRIT 31.3 % (35.0-46.0); LYMPH % 20.9 % (9.0-44.0); LYMPHOCYTE # 1.5 TH/MM3 (1.0-4.8); MEAN CELL VOLUME 92.5 FL (80.0-100.0); MEAN CORPUSCULAR HEMOGLOBIN 32.4 PG (27.0-34.0); MEAN CORPUSCULAR HGB CONC 35.1 % (32.0-36.0); MEAN PLATELET VOLUME 7.7 FL (7.0-11.0); MONO % 11.4 % (0.0-8.0); MONOCYTE # 0.8 TH/MM3 (0-0.9); NEUT % 67.1 % (16.0-70.0); PLATELET COUNT 232 TH/MM3 (150-450); RED BLOOD COUNT 3.39 MIL/MM3 (4.00-5.30); RED CELL DISTRIBUTION WIDTH 12.5 % (11.6-17.2)
[2017-08-22 11:23] LABS: BACTERIA, URINE MOD /hpf; BILIRUBIN, URINE NEG (NEG); BLOOD, URINE NEG (NEG); GLUCOSE,URINE NEG (NEG); KETONE, URINE NEG (NEG); MUCUS URINE MANY /lpf (OCC); NITRITE,URINE NEG (NEG); SQUAMOUS EPITHELIAL CELL URINE 14 /hpf (0-5); URINE COLOR DARK-YELLOW (YELLW/STRAW); URINE LEUKOCYTE ESTERASE LARGE (NEG)
[2017-08-22 11:27] LABS: ALBUMIN 3.8 GM/DL (3.4-5.0); ALT (GPT) 13 U/L (10-53); AST (GOT) 20 U/L (15-37); BICARBONATE 27.3 MEQ/L (21.0-32.0); BLOOD UREA NITROGEN 10 MG/DL (7-18); CALCIUM 8.4 MG/DL (8.5-10.1); CHLORIDE 105 MEQ/L (98-107); CREATININE 0.52 MG/DL (0.50-1.00); GLOMERULAR FILTRATION RATE 168 ML/MIN (>89); GLUCOSE,RANDOM 77 MG/DL (74-106); SODIUM (NA) 138 MEQ/L (136-145)
[2017-08-22 11:29] LABS: ALKALINE PHOSPHATASE 46 U/L (45-117); TOTAL BILIRUBIN ADULT 0.2 MG/DL (0.2-1.0); TOTAL PROTEIN 7.4 GM/DL (6.4-8.2)
[2017-08-22] MEDS ORDERED: KETOROLAC TROMETHAMINE 30 MG/ML (IVP) VIAL IV PUSH ONE (11:45)
[2017-08-22] MEDS ORDERED: cefTRIAXone INJ 1,000 MG in SODIUM CHLORIDE 0.9% INJ 100 ML IV ONE (11:45)
[2017-08-22] MEDS ORDERED: CEFU1TAB18 PO (11:47)
== END 2017-08-22 12:38 | disposition home or self-care (01) ==
LOC: NEPE 09:54
DX: N39.0 Urinary tract infection, site not specified (principal); R31.9 Hematuria, unspecified; J02.8 Acute pharyngitis due to other specified organisms; B95.4 Other streptococcus as the cause of diseases classified elsewhere; R59.0 Localized enlarged lymph nodes; R11.2 Nausea with vomiting, unspecified; R19.7 Diarrhea, unspecified; R05 Cough; F17.200 Nicotine dependence, unspecified, uncomplicated; Z86.79 Personal history of other diseases of the circulatory system; Z87.442 Personal history of urinary calculi; Z87.42 Personal history of other diseases of the female genital tract
CPT/HCPCS: 80053; 81001; 84703; 85025; 87081; 87086; 87804; 87880; 96361; 96365; 96375; 99284; J0696; J1885; J2405; J7030